=== PATIENT | female | born 1975 | race Caucasian/White ===

== ENCOUNTER 2022-11-04 10:03 | Emergency (ER) | payer OTHER, MEDICAID | END 2022-11-04 11:12 | disposition home or self-care (01) | LOC: LB.ED 10:03 | DX: S60.445A External constriction of left ring finger, initial encounter (principal); Z79.899 Other long term (current) drug therapy; W22.8XXA Striking against or struck by other objects, initial encounter | CPT/HCPCS: 99283 ==